=== PATIENT | male | born 1980 | race American Indian/Alaskan Native ===

== ENCOUNTER 2020-09-24 09:21 | Emergency (ER) | payer BC, OTHER ==
--- NOTE | 2020-09-24 10:33 | EDM.PDOC ---
"ED HPI GENERAL MEDICAL PROBLEM - General Chief Complaint: Chest Pain Stated Complaint: CHEST PAIN THROAT HURTS HEAD PRESSURE Time Seen by Provider: 09/24/20 10:10 Source of Information: Reports: Patient, RN, RN Notes Reviewed History Limitations: Reports: No Limitations - History of Present Illness INITIAL COMMENTS - FREE TEXT/NARRATIVE: The patient presents to the ED via personal vehicle with complaints of chest pain. Per patient report, the pain to his left lateral chest began 2 days ago (09/22/2020). This pain is localized to his left lateral chest, and does not radiate into his neck or down his left arm. He has not taken any medication for this pain. The patient does attest to shortness of breath, dry cough, sore throat, headache, and diarrhea. He denies vision changes, fever, shaking chills, nausea, vomiting, abdominal pain, dysuria, hematuria, melena, or hematochezia. The patient states his children have recently tested positive for COVID; he was tested on Sunday of this past week but is still awaiting results. He denies tobacco use, but states he does smoke medical marijuana. He denies alcohol and recreational drug use. Left Chest Pain Score (Numeric/FACES): 7 - Related Data Allergies Allergy/AdvReac Type Severity Reaction Status Date / Time codeine Allergy Cannot Verified 09/24/20 09:38 Remember Home Meds: Home Meds Ibuprofen [Ibu] 800 mg PO Q8H PRN 09/24/20 [History] atorvaSTATin Calcium [Atorvastatin Calcium] 10 mg PO DAILY 09/24/20 [History] lisinopriL [Lisinopril] 40 mg PO DAILY 09/24/20 [History] Past Medical History HEENT History: Reports: None Cardiovascular History: Reports: High Cholesterol, Hypertension Respiratory History: Reports: None Gastrointestinal History: Reports: None Genitourinary History: Reports: None Neurological History: Reports: None Psychiatric History: Reports: None Endocrine/Metabolic History: Reports: Diabetes, Type I Hematologic History: Reports: None Immunologic History: Reports: None Oncologic (Cancer) History: Reports: None Dermatologic History: Reports: None - Infectious Disease History Infectious Disease History: Reports: None - Past Surgical History Head Surgeries/Procedures: Reports: None Musculoskeletal Surgical History: Reports: Other (See Below) Other Musculoskeletal Surgeries/Procedures:: DANYA knee surgery Social & Family History - Family History Family Medical History: Noncontributory - Tobacco Use Tobacco Use Status *Q: Never Tobacco User Second Hand Smoke Exposure: No - Caffeine Use Caffeine Use: Reports: Coffee, Energy Drinks, Soda - Alcohol Use Days Per Week of Alcohol Use: 2 Number of Drinks Per Day: 6 Total Drinks Per Week: 12 - Recreational Drug Use Recreational Drug Use: No ED ROS GENERAL - Review of Systems Review Of Systems: Comprehensive ROS is negative, except as noted in HPI. ED EXAM, GENERAL - Physical Exam Exam: See Below Exam Limited By: No Limitations General Appearance: Alert, WD/WN, No Apparent Distress Eye Exam: Bilateral Eye: EOMI, Normal Inspection, PERRL Ears: Normal External Exam, Hearing Grossly Normal Neck: Normal Inspection, Supple, Non-Tender Respiratory/Chest: No Respiratory Distress, Lungs Clear, Normal Breath Sounds, No Accessory Muscle Use. No: Chest Non-Tender (Pain with inspiration), Crackles , Rales, Rhonchi, Wheezing, Stridor, Accessory Muscle Use Cardiovascular: Normal Peripheral Pulses, Regular Rate, Rhythm, No Edema, No Gallop, No JVD, No Murmur, No Rub Peripheral Pulses: 2+: Radial (L), Radial (R) GI/Abdominal: Normal Bowel Sounds, Soft, Non-Tender, No Distention, No Mass, Pelvis Stable (Male) Exam: Deferred Rectal (Males) Exam: Deferred Back Exam: Normal Inspection, Full Range of Motion. No: CVA Tenderness (L), CVA Tenderness (R) Extremities: Normal Inspection, Normal Range of Motion, Non-Tender, No Pedal Edema, Normal Capillary Refill Neurological: Alert, Oriented, CN II-XII Intact, Normal Cognition, No Motor/Sensory Deficits Psychiatric: Normal Affect, Normal Mood Skin Exam: Warm, Dry, Intact, Normal Color, No Rash. No: Ecchymosis, Erythema, Mottled, Pallor, Petechiae, Rash #1 Interpretation EKG Date: 09/24/20 Time: 10:23 Rhythm: NSR Rate (Beats/Min): 81 Grace: Normal P-Wave: Present QRS: Normal ST-T: Normal QT: Normal Comparison: NA - No Prior EKG EKG Interpretation Comments: NSR; No evidence of acute ischemia Course - Vital Signs Last Recorded V/S: Last Vital Signs Temp 98 F 09/24/20 09:40 Pulse 82 10/30/20 09:40 Resp 16 09/24/20 09:40 BP 134/84 09/24/20 09:40 Pulse Ox 96 09/24/20 09:40 - Orders/Labs/Meds Orders: Active Orders 24 hr Category Date Time Status EKG Documentation Completion [RC] STAT Care 09/24/20 09:41 Active Labs: Laboratory Tests 09/24/20 09/24/20 09/24/20 Range/Units 09:35 10:20 10:20 WBC 5.4 (5.0-10.0) 10^3/uL RBC 6.24 H (4.6-6.2) 10^6/uL Hgb 17.0 (14.0-18.0) g/dL Hct 52.1 (40.0-54.0) % MCV 83.5 (80-100) fL MCH 27.2 (27.0-34.0) pg MCHC 32.6 L (33.0-35.0) g/dL Plt Count 232 (150-450) 10^3/uL Neut % (Auto) 33.6 L (42.2-75.2) % Lymph % (Auto) 47.8 (20.5-50.1) % Crenshaw % (Auto) 16.3 H (2-8) % Eos % (Auto) 1.9 (1.0-3.0) % Baso % (Auto) 0.4 (0.0-1.0) % D-Dimer, Quantitative < 100 (0-400) ng/mL Sodium (136-145) mmol/L Potassium (3.5-5.1) mmol/L Chloride (98-107) mmol/L Carbon Dioxide (21-32) mmol/L Anion Gap (7-13) mEq/L BUN (7-18) mg/dL Creatinine (0.70-1.30) mg/dL Est Cr Clr Drug Dosing mL/min Estimated GFR (MDRD) BUN/Creatinine Ratio (No establ ref range) Glucose (74-99) mg/dL Lactic Acid (0.4-2.0) mmol/L Calcium (8.5-10.1) mg/dL Total Bilirubin (0.2-1.0) mg/dL AST (15-37) U/L ALT (16-63) U/L Alkaline Phosphatase (46-116) U/L Troponin I (0.000-0.056) ng/mL Total Protein (6.4-8.2) g/dL Albumin (3.4-5.0) g/dL Globulin Albumin/Globulin Ratio SARS CoV-2 RNA Rapid JORDEN Positive H (NEGATIVE) 09/24/20 09/24/20 Range/Units 10:20 10:20 WBC (5.0-10.0) 10^3/uL RBC (4.6-6.2) 10^6/uL Hgb (14.0-18.0) g/dL Hct (40.0-54.0) % MCV (80-100) fL MCH (27.0-34.0) pg MCHC (33.0-35.0) g/dL Plt Count (150-450) 10^3/uL Neut % (Auto) (42.2-75.2) % Lymph % (Auto) (20.5-50.1) % Crenshaw % (Auto) (2-8) % Eos % (Auto) (1.0-3.0) % Baso % (Auto) (0.0-1.0) % D-Dimer, Quantitative (0-400) ng/mL Sodium 140 (136-145) mmol/L Potassium 4.2 (3.5-5.1) mmol/L Chloride 105 (98-107) mmol/L Carbon Dioxide 28 (21-32) mmol/L Anion Gap 11.2 (7-13) mEq/L BUN 14 (7-18) mg/dL Creatinine 1.26 (0.70-1.30) mg/dL Est Cr Clr Drug Dosing 83.00 mL/min Estimated GFR (MDRD) > 60 BUN/Creatinine Ratio 11.1 (No establ ref range) Glucose 103 H (74-99) mg/dL Lactic Acid 1.5 (0.4-2.0) mmol/L Calcium 8.8 (8.5-10.1) mg/dL Total Bilirubin 0.4 (0.2-1.0) mg/dL AST 34 (15-37) U/L ALT 84 H (16-63) U/L Alkaline Phosphatase 72 (46-116) U/L Troponin I < 0.017 (0.000-0.056) ng/mL Total Protein 7.3 (6.4-8.2) g/dL Albumin 3.4 (3.4-5.0) g/dL Globulin 3.9 Albumin/Globulin Ratio 0.9 SARS CoV-2 RNA Rapid JORDEN (NEGATIVE) - Radiology Interpretation Free Text/Narrative:: [facility] [place] [facility] Final Radiology Report Call: [phone] assistance Online chat: [email or web address] Name: ANAHY SPEAR Age: 39Years M Date: 09/24/2020 SSN: -- : [id number] Study: CT CHEST WO CONT Requesting Physician: Gale Concepcion Images: [id number] Addl Studies: Provided Clinical History: COVID+; Chest pain Contrast: Without Contrast Medium: Contrast Amount: Contrast Method: Page 1 of 2 PROCEDURE INFORMATION: Exam: CT Chest Without Contrast Exam date and time: 09/24/2020 11:23 AM Age: 39 years old Clinical indication: Chest pain; Type not specified; Additional info: Covid+; Chest pain TECHNIQUE: Imaging protocol: Computed tomography of the chest without contrast. Radiation optimization: All CT scans at this facility use at least one of these dose optimization techniques: automated exposure control; mA and/or kV adjustment per patient size (includes targeted exams where dose is matched to clinical indication); or iterative reconstruction. COMPARISON: No relevant prior studies available. FINDINGS: Lungs: No evidence of consolidation. There is mild lingular atelectasis. No lung nodules or masses. Pleural space: Unremarkable. No pneumothorax. No pleural effusion. Heart: The cardiac structures are normal. Mediastinal space: The mediastinal contour is normal. Aorta: Unremarkable. No aortic aneurysm. Lymph nodes: Small 8 mm and less mediastinal lymph nodes. No lymphadenopathy. Liver: There is a diffuse decrease in hepatic parenchymal density, consistent with mild fatty infiltration. Bones/joints: Unremarkable. No acute fracture. Soft tissues: Unremarkable. IMPRESSION: 1. No acute cardiac or pulmonary findings. Minimal lingular atelectasis. 2. Hepatic fatty infiltration. ANAHY SPEAR | Final Radiology Report CONFIDENTIALITY STATEMENT This report is intended only for use by the referring physician, and only in accordance with law. If you received this in error, call [phone]. Page 2 of 2 Thank you for allowing us to participate in the care of your patient. Dictated and Authenticated by: Jing Tavarez MD 09/24/2020 11:56 AM Central Time ([place] & [place]) - Re-Assessments/Exams Free Text/Narrative Re-Assessment/Exam: 09/24/20 11:01 CBC, CMP, D-Dimer unremarkable. EKG reveals no evidence of ischemia. Departure - Departure Time of Disposition: 11:58 Disposition: Home, Self-Care 01 Condition: Good Clinical Impression: Costochondritis, acute, Lab test positive for detection of COVID-19 virus Instructions: Costochondritis, [id number] Forms: ED Department Discharge Additional Instructions: Rx: Francois Weston Drink plenty of fluids to stay hydrated. Follow the instructions of the [facility] regarding quarantine. Sepsis Event Note (ED) - Evaluation Sepsis Screening Result: No Definite Risk - Focused Exam Vital Signs: Vital Signs Temp Pulse Resp BP Pulse Ox 09/24/20 09:40 98 F 82 16 134/84 96 - My Orders Last 24 Hours: My Active Orders 09/24/20 09:41 EKG Documentation Completion [RC] STAT - Assessment/Plan Last 24 Hours: My Active Orders 09/24/20 09:41 EKG Documentation Completion [RC] STAT"
[2020-09-24 10:52] LABS: ANION GAP 11.2 mEq/L (7-13); CHLORIDE,CL 105 mmol/L (98-107); SODIUM,NA 140 mmol/L (136-145)
--- NOTE | 2020-09-24 11:56 | CT ---
PROCEDURE INFORMATION: Exam: CT Chest Without Contrast Exam date and time: 09/24/2020 11:23 AM Age: 39 years old Clinical indication: Chest pain; Type not specified; Additional info: Covid+; Chest pain TECHNIQUE: Imaging protocol: Computed tomography of the chest without contrast. Radiation optimization: All CT scans at this facility use at least one of these dose optimization techniques: automated exposure control; mA and/or kV adjustment per patient size (includes targeted exams where dose is matched to clinical indication); or iterative reconstruction. COMPARISON: No relevant prior studies available. FINDINGS: Lungs: No evidence of consolidation. There is mild lingular atelectasis. No lung nodules or masses. Pleural space: Unremarkable. No pneumothorax. No pleural effusion. Heart: The cardiac structures are normal. Mediastinal space: The mediastinal contour is normal. Aorta: Unremarkable. No aortic aneurysm. Lymph nodes: Small 8 mm and less mediastinal lymph nodes. No lymphadenopathy. Liver: There is a diffuse decrease in hepatic parenchymal density, consistent with mild fatty infiltration. Bones/joints: Unremarkable. No acute fracture. Soft tissues: Unremarkable. IMPRESSION: 1. No acute cardiac or pulmonary findings. Minimal lingular atelectasis. 2. Hepatic fatty infiltration.
== END 2020-09-24 12:02 | disposition home or self-care (01) ==
LOC: DL.ED 09:21
DX: M94.0 Chondrocostal junction syndrome [Tietze] (principal); U07.1 COVID-19; E78.00 Pure hypercholesterolemia, unspecified; I10 Essential (primary) hypertension; E10.9 Type 1 diabetes mellitus without complications; Z79.899 Other long term (current) drug therapy; Z88.5 Allergy status to narcotic agent
CPT/HCPCS: 36415; 71250; 80053; 83605; 84484; 85025; 85379; 93005; 93010; 99283; 99285-25; U0002